=== PATIENT | female | born 1990 | race Caucasian/White ===

== ENCOUNTER 2019-07-18 14:30 | Outpatient (CLI) | payer BC ==
--- NOTE | 2019-07-18 16:50 | MRI ---
MRI RIGHT KNEE WITHOUT CONTRAST: Date: 07/18/2019 HISTORY: N25.561 pain in right knee. COMPARISON: None. FINDINGS: Medial meniscus: Intact. Lateral meniscus: Intact. Extensor mechanism: The quadriceps tendon and patellar tendon are intact. There is abnormal edema within the medullary ca vity of the patella. Cartilage: Patellofemoral compartment: There is severe chondral fraying throughout the medial and lateral persaud lar facets but a multitude of this is full thickness. There appears to be some secondary calcificatio ns of the patellar cartilage. High grade chondral delamination along the inferior medial patellar fac et measuring 12.0 mm in transverse with an AP dimension of 3.0 mm. Tibial tuberosity-trochlear groove distance is approximately 15.0 mm. The MCL and LCL are intact. ACL and PCL are intact. Medial compartment: Intact. Lateral compartment: Intact. Muscles: Muscle signal and bulk are normal. Soft tissues: Moderate joint effusion, abnormal for age. Abnormal edema extending along the infrapatellar plica. IMPRESSION: 1. 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 There is also a large area of chondral de lamination at risk for flaking at the inferior medial patellar facet measuring 12-13 mm in transverse x 3.0 mm in AP dimension. There is associated subcortical medullary edema. 2. Mildly thickened and edematous infrapatellar plica. POS: HOME
== END 2019-07-18 14:31 | disposition home or self-care (01) ==
LOC: BICMRI 14:30
PROVIDERS: ATTEND Orthopaedic Surgery
DX: M25.561 Pain in right knee (principal); R60.0 Localized edema